=== PATIENT | female | born 1990 | race Caucasian/White ===

== ENCOUNTER 2020-02-04 12:19 | Outpatient (REF) | payer SELFPAY ==
[2020-02-04 13:28] LABS: Cholesterol 169 mg/dL
[2020-02-04 15:29] LABS: SARS COV2 IgG Negative (Negative)
== END 2020-02-04 12:20 | disposition home or self-care (01) ==
LOC: HO.LNC 12:19
PROVIDERS: Visit Provider Pathology Anatomic Pathology & Clinical Pathology
DX: Z13.89 Encounter for screening for other disorder (principal)
CPT/HCPCS: 82465; 86769